=== PATIENT | female | born 1945 | race Hispanic/Latino ===

== ENCOUNTER 2020-07-17 08:06 | Outpatient (CLI) | payer OTHER, SELFPAY ==
--- NOTE | ~2020-07-17 | MM_ITS ---
EXAMINATION: MM screening malinda BI w leonel HISTORY: Screening mammogram TECHNIQUE: Craniocaudal and mediolateral oblique 3-D tomosynthesis images were obtained and synthetic 2-D images were generated. CAD analysis was submitted and interpreted. COMPARISON: 04/02/2016, 01/21/2013 bilateral digital screening mammogram examinations BREAST PARENCHYMAL COMPOSITION: There are scattered areas of fibroglandular density. FINDINGS: Stable superolateral subareolar opacity with calcifications in the right breast. Scattered benign calcifications are noted bilaterally. Benign stable bilateral axillary tail lymph nodes. There is no evidence of suspicious mass, calcification, or architectural distortion to suggest malignancy in either breast. There has been no suspicious interval change. IMPRESSION: 1. No mammographic evidence of malignancy. 2. Recommend routine screening mammography in one year. BI-RADS Category 2: Benign finding(s). Reviewed, dictated and finalized at location A. [employer] SUPERVISOR
== END 2020-07-17 08:07 | disposition home or self-care (01) ==
LOC: ANHIMG 08:11
DX: Z12.31 Encounter for screening mammogram for malignant neoplasm of breast (principal)
CPT/HCPCS: 77063; 77067

== ENCOUNTER 2024-01-06 07:19 | Outpatient (CLI) | payer OTHER, SELFPAY ==
--- NOTE | ~2024-01-06 | MM_ITS ---
EXAMINATION: MM screening malinda BI w leonel HISTORY: Screening TECHNIQUE: Craniocaudal and mediolateral oblique 3-D tomosynthesis images were obtained and synthetic 2-D images were generated. CAD analysis was submitted and interpreted. COMPARISON: Comparison to multiple prior studies sequentially, with oldest reviewed study dated 03/13. BREAST PARENCHYMAL COMPOSITION: Not dense: There are scattered areas of fibroglandular density. FINDINGS: There is a mass in the upper outer quadrant of the right breast anteriorly which has increa sed in density compared with prior studies. The left breast is stable without evidence for malignancy . IMPRESSION: 1. Right breast mass upper outer quadrant with increased density since prior studies. 2. Additional mammographic views and possible breast ultrasound are recommended. BI-RADS Category 0: Incomplete: Needs additional imaging evaluation. Reviewed, dictated and finalized at location B. IMPRESSION: 1. Right breast mass upper outer quadrant with increased density since prior st udies. 2. Additional mammographic views and possible breast ultrasound are recommended . BI-RADS Category 0: Incomplete: Needs additional imaging evaluation.
== END 2024-01-06 07:20 | disposition home or self-care (01) ==
DX: Z12.31 Encounter for screening mammogram for malignant neoplasm of breast (principal); N63.11 Unspecified lump in the right breast, upper outer quadrant; R92.8 Other abnormal and inconclusive findings on diagnostic imaging of breast
CPT/HCPCS: 77063; 77067

== ENCOUNTER 2024-01-29 10:16 | Outpatient (CLI) | payer OTHER, SELFPAY ==
--- NOTE | ~2024-01-29 | MM_ITS ---
EXAMINATION: MM diagnostic malinda RT w leonel HISTORY: Right breast mass TECHNIQUE: Additional 3-D tomosynthesis images of the right breast were performed and synthetic 2-D i mages were generated. CAD analysis was submitted and interpreted. COMPARISON: 01/06/2024, 321, 04/02/2016 BREAST PARENCHYMAL COMPOSITION:Not Dense. There are scattered areas of fibroglandular density. FINDINGS: Roughly ovoid right subareolar mass with focal coarse calcification is essentially stable d ating back to 2016. Increased density likely technical in nature. Lesion is unchanged in size or morp hology otherwise. IMPRESSION: No mammographic evidence for malignancy. 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 BI-RADS Category 2: Benign finding(s). Reviewed, dictated and finalized at location .
== END 2024-01-29 10:17 | disposition home or self-care (01) ==
LOC: ANHIMG 10:17
PROVIDERS: Visit Provider Internal Medicine
DX: R92.8 Other abnormal and inconclusive findings on diagnostic imaging of breast (principal)
CPT/HCPCS: 77061; 77065; G0279